=== PATIENT | male | born 1955 | race Caucasian/White ===

== ENCOUNTER 2018-06-06 16:25 | Emergency (ER) | payer SELFPAY ==
--- NOTE | 2018-06-06 16:59 | EDPHY ---
H & P Time Seen by Provider: 06/06/18 16:56 HPI/ROS: CHIEF COMPLAINT: Chin abrasion HISTORY OF PRESENT ILLNESS: Patient is a 63-year-old male who presents emergency department with ongoing bleeding from his chin. The patient accidentally cut himself while shaving. He applied a Band-Aid. He states it has continued to bleed all day. He has had changes sugar is multiple times. He is not lightheaded or dizzy. He has no other complaints. Patient is not taking blood thinners. He denies aspirin or Plavix. REVIEW OF SYSTEMS: 10 systems were reveiwed and are negative with the exception of the elements mentioned in the history of present illness. Past Medical/Surgical History: High cholesterol Past surgical history: Includes hernia repair Social history: Patient does not smoke Smoking Status: Never smoked Physical Exam: Vitals noted General Appearance: Alert and no distress. Head: Pupils equal. Normal conjunctiva. Patient has a 2 mm abrasion on his chin. This is not a laceration that needs suturing. It is actively bleeding. Nonpulsatile. Respiratory: No respiratory distress. Cardiac: regular rate and rhythm. Well perfused. Extremities: Full range of motion, normal appearing. Skin: No rashes or lesions. No paleness. Neuro: Alert. Normal mood and affect. Constitutional: Initial Vital Signs Temperature (C) 36.8 C 06/06/18 16:30 Heart Rate 83 06/06/18 16:30 Respiratory Rate 16 06/06/18 16:30 Blood Pressure 130/95 H 06/06/18 16:30 O2 Sat (%) 98 06/06/18 16:30 O2 Delivery Mode Room Air Allergies/Adverse Reactions: No Known Allergies Allergy (Verified 06/06/18 16:26) Home Medications: Medication Instructions Recorded Aspirin 81mg (OTC) 04/03/15 Finasteride 04/03/15 HCTZ (RX) 04/03/15 Lisinopril 04/03/15 Proscar 5 MG (RX) 04/03/15 Medical Decision Making ED Course/Re-evaluation: In the emergency department I discussed possible etiologies with the patient. I answered all his questions. Because of his ongoing bleeding throughout the day he was given an injection of lidocaine with 1% epinephrine. Surgicel and a Band-Aid were subsequently placed. I gave the patient warnings prior to leaving. He will return with worsening symptoms. Differential Diagnosis: My differential includes but is not limited to coagulopathy, anemia, abrasion, laceration, foreign body Departure - Departure Disposition: Home, Routine, Self-Care Clinical Impression: Abrasion Condition: Good Instructions: Abrasion (ED) Additional Instructions: If bleeding returns apply pressure for 20 min without checking to see if it stopped. If you are unable to get it to stop return to the emergency department. Referrals: ARRON FAJARDO [Other] - 5-7 days, call for appt.
[2018-06-06 17:52] VITALS: BP 130/90
== END 2018-06-06 17:50 | disposition home or self-care (01) ==
LOC: CED 16:25
DX: S00.81XA Abrasion of other part of head, initial encounter (principal); W26.8XXA Contact with other sharp object(s), not elsewhere classified, initial encounter